=== PATIENT | male | born 1990 | race Caucasian/White ===

== ENCOUNTER 2016-12-04 11:40 | Inpatient (IN) | payer MEDICAID, OTHER ==
[~2016-12-04] VITALS: Ht 177.8 cm; Wt 98.7 kg
[2016-12-04] MEDS ORDERED: SOD CHLORIDE 0.9% 1,000 ML IV STA (12:27)
[2016-12-04 13:03] LABS: ADD SCAN DIFF NO
[2016-12-04 13:04] LABS: BASOPHILS % 0.2 % (0.0-2.0); EOSINOPHILS # 0.1 10^3/ul (0.0-0.5); EOSINOPHILS % 0.5 % (0.0-7.0); HEMATOCRIT 43.5 % (42.0-52.0); HEMOGLOBIN 14.8 g/dl (14.0-18.0); LYMPHOCYTES # 2.4 10^3/ul (0.8-2.9); LYMPHOCYTES % 18.6 % (15.0-51.0); MEAN CORPUSCULAR HEMOGLOBIN 29.2 pg (29.0-33.0); MEAN CORPUSCULAR VOLUME 85.8 fl (82.0-101.0); MEAN PLATELET VOLUME 10.7 fl (7.4-10.4); MONOCYTE # 0.7 10^3/ul (0.3-0.9); MONOCYTES % 5.4 % (0.0-11.0); NEUTROPHIL # 9.6 10^3/ul (1.6-7.5); NEUTROPHILS % 74.9 % (39.0-77.0); PLATELET COUNT 261 10^3/UL (140-415); RED BLOOD COUNT 5.07 10^6/ul (4.70-6.10); RED CELL DISTRIBUTION WIDTH 12.8 % (11.5-14.5); WHITE BLOOD COUNT 12.8 10^3/ul (4.8-10.8)
[2016-12-04 13:19] LABS: INR 0.93; PROTIME 12.5 Sec (12.2-14.2)
[2016-12-04 13:20] LABS: PARTIAL THROMBOPLASTIN TIME 35.9 Sec (25.0-35.0)
[2016-12-04 13:23] LABS: ANION GAP 15 (8-16); BLOOD UREA NITROGEN 9 mg/dl (7-20); CALCIUM 9.1 mg/dl (8.4-10.2); CARBON DIOXIDE 30 mmol/L (21-31); CHLORIDE 102 mmol/L (97-110); CREATINE KINASE 976 IU/L (23-200); CREATININE 0.83 mg/dl (0.61-1.24); GLUCOSE 101 mg/dl (70-220); POTASSIUM 4.4 mmol/L (3.5-5.1); SODIUM 143 mmol/L (135-144)
[2016-12-04 13:28] LABS: ACETAMINOPHEN < 10.0 ug/ml (10.0-30.0); ETHANOL < 10.0 mg/dl; SALICYLATE < 1.0 mg/dl (5.0-30.0)
[2016-12-04 13:36] LABS: TROPONIN-I < 0.012 ng/ml (0.00-0.12)
--- NOTE | 2016-12-04 13:46 | RADRPT ---
PROCEDURE: Chest x-ray CLINICAL INDICATION: Possible Stroke. Pain TECHNIQUE: One-view frontal. COMPARISON: None available FINDINGS: The cardiac silhouette is normal. No infiltrates are noted. No hilar abnormalities are identified. No pneumothorax or pleural effusions are visualized. IMPRESSION: 1. No active cardiopulmonary changes. RPTAT: HGSG .Avi Ragsdale MD, MD Date Time Electronically viewed and signed by .Avi Ragsdale MD, MD on 12/04/2016 13:46 .G/
[2016-12-04] MEDS ORDERED: ACETAMINOPHEN 325 MG TAB PO PRN ×2 (14:00→14:30)
[2016-12-04] MEDS ORDERED: ONDANSETRON 4 MG INJ IV PRN ×2 (14:00→14:30)
[2016-12-04 14:11] LABS: THYROID STIMULATING HORMONE 0.629 MIU/L (0.465-4.680)
[2016-12-04] MEDS ORDERED: LORAZEPAM 2 MG INJ IV PRN (14:30)
[2016-12-04] MEDS ORDERED: morphine 2 MG INJ IV PRN (14:30)
[2016-12-04] MEDS ORDERED: MAGNESIUM HYDROXIDE 30ML CUP PO PRN (14:30)
[2016-12-04] MEDS ORDERED: DOCUSATE SODIUM 100 MG CAP PO PRN (14:30)
[2016-12-04] MEDS ORDERED: ALBUTEROL/IPRATROPIUM (NEB) 3 ML AMP HHN PRN (14:30)
[2016-12-04] MEDS ORDERED: NACL 0.9% 3 ML SYG IV SCH (14:30)
[2016-12-04] MEDS ORDERED: NA PHOSPHATE/BIPHOS 133 ML ENEMA PR PRN (14:30)
[2016-12-04] MEDS ORDERED: NITROGLYCERIN (SL) 0.4 MG TAB SL PRN (14:30)
[2016-12-04] MEDS ORDERED: hydrALAzine 20 MG INJ IV PRN (14:30)
[2016-12-04] MEDS ORDERED: HYDROCODONE/APAP (5/325) TAB PO PRN (14:30)
--- NOTE | 2016-12-04 14:46 | ERA ---
ER Documentation Chief Complaint Date/Time DATE: 12/04/16 TIME: 14:44 Chief Complaint SUDDEN ONSET BILATERAL LEG WEAKNESS X1 DAY HPI Patient is a 26-year-old male with no medical problems who presents with weakness. He says "my muscles feel weak". He said at the upper and lower body bilaterally. It started yesterday morning. He said he woke up like this. He had to be carried into the car to get to the emergency department. He has pain with movement. He denies fevers. He has had no recent sickness. He denies incontinence. Upon review of old medical records this is the patient's first visit to the emergency department. He does not currently have a primary doctor. ROS All systems reviewed and are negative except as per history of present illness. Medications Home Meds No Active Prescriptions or Reported Meds Allergies Allergies: Coded Allergies: No Known Allergy (Unverified , 12/04/16) PMhx/Soc Medical and Surgical Hx: pt denies Medical Hx, pt denies Surgical Hx History of Surgery: No Anesthesia Reaction: No Hx Neurological Disorder: No Hx Respiratory Disorders: No Hx Cardiac Disorders: No Hx Psychiatric Problems: No Hx Miscellaneous Medical Probl: No Hx Alcohol Use: Yes Hx Substance Use: No Hx Tobacco Use: Yes Smoking Status: Current every day smoker FmHx Family History: No diabetes Physical Exam Vitals Vital Signs Date Time Temp Pulse Resp B/P Pulse Ox O2 Delivery O2 Flow Rate FiO2 12/04/16 13:43 86 18 116/80 100 Room Air 12/04/16 13:21 98 14 135/65 100 Room Air 12/04/16 12:45 Nasal Cannula 3 12/04/16 11:49 98.7 86 20 149/770 97 Physical Exam Const: No acute distress Head: Atraumatic Eyes: Normal Conjunctiva ENT: Normal External Ears, Nose and Mouth. Neck: Full range of motion..~ No meningismus. Resp: Clear to auscultation bilaterally Cardio: Regular rate and rhythm, no murmurs Abd: Soft, non tender, non distended. Normal bowel sounds Skin: No petechiae or rashes Back: No midline or flank tenderness Ext: No cyanosis, or edema Neur: Awake and alert, significant weakness of the upper and lower extremities bilaterally, he is unable to lift his legs off the bed Psych: Normal Mood and Affect Result Diagram: 12/04/16 1300 12/04/16 1300 Results 24 hrs Laboratory Tests Test 12/04/16 13:00 White Blood Count 12.810^3/ul Red Blood Count 5.0710^6/ul Hemoglobin 14.8g/dl Hematocrit 43.5% Mean Corpuscular Volume 85.8fl Mean Corpuscular Hemoglobin 29.2pg Mean Corpuscular Hemoglobin Concent 34.0g/dl Red Cell Distribution Width 12.8% Platelet Count 29868^3/UL Mean Platelet Volume 10.7fl Neutrophils % 74.9% Lymphocytes % 18.6% Monocytes % 5.4% Eosinophils % 0.5% Basophils % 0.2% Nucleated Red Blood Cells % 0.0/100WBC Neutrophils # 9.610^3/ul Lymphocytes # 2.410^3/ul Monocytes # 0.710^3/ul Eosinophils # 0.110^3/ul Basophils # 0.010^3/ul Nucleated Red Blood Cells # 0.010^3/ul Prothrombin Time 12.5Sec Prothrombin Time Ratio 1.0 INR International Normalized Ratio 0.93 Activated Partial Thromboplast Time 35.9Sec Sodium Level 143mmol/L Potassium Level 4.4mmol/L Chloride Level 102mmol/L Carbon Dioxide Level 30mmol/L Anion Gap 15 Blood Urea Nitrogen 9mg/dl Creatinine 0.83mg/dl Glucose Level 101mg/dl Hemoglobin A1c 5.6% Calcium Level 9.1mg/dl Creatine Kinase 976IU/L Troponin I < 0.012ng/ml Thyroid Stimulating Hormone (TSH) 0.629MIU/L Free Thyroxine 0.83ng/dl Salicylates Level < 1.0mg/dl Acetaminophen Level < 10.0ug/ml Ethyl Alcohol Level < 10.0mg/dl Current Medications Medications (Trade) Dose Ordered Sig/Amara Route PRN Reason Start Time Stop Time Status Last Admin Dose Admin Sodium Chloride (NS) 1,000 ml @ 1,000 mls/hr Q1H STAT IV 12/04/16 12:27 12/04/16 13:26 DC 12/04/16 13:06 Ondansetron HCl (Zofran Inj) 4 mg BRIDGE ORDER PRN IV NAUSEA AND/OR VOMITING 12/04/16 14:00 12/04/16 14:27 DC Acetaminophen (Tylenol Tab) 650 mg ER BRIDGE PRN PO MILD PAIN/FEVER 12/04/16 14:00 12/04/16 14:27 DC IV Flush (NS 3 ml) 3 ml PER PROTOCOL IV 12/04/16 14:30 Ondansetron HCl (Zofran Inj) 4 mg Q6H PRN IV NAUSEA AND/OR VOMITING 12/04/16 14:30 Acetaminophen (Tylenol Tab) 650 mg Q6H PRN PO PAIN LEVEL 1-3 OR FEVER 12/04/16 14:30 Acetaminophen/ Hydrocodone Bitart ([place] (5/325)) 1 tab Q6H PRN PO MODERATE PAIN LEVEL 4-6 12/04/16 14:30 Morphine Sulfate (morphine) 2 mg Q4H PRN IV SEVERE PAIN LEVEL 7-10 12/04/16 14:30 Docusate Sodium (Colace) 100 mg Q12H PRN PO CONSTIPATION 12/04/16 14:30 Magnesium Hydroxide (Milk Of Mag) 30 ml DAILY PRN PO CONSTIPATION 12/04/16 14:30 Sodium Biphosphate/ Sodium Phosphate (Fleet Enema) 133 ml DAILY PRN [place] CONSTIPATION 12/04/16 14:30 Pantoprazole (Protonix Tab) 40 mg DAILY@06 PO 12/05/16 06:00 Heparin Sodium (Porcine) (Heparin (5000 Units/0.5 ml)) 5,000 unit Q12 SC 12/04/16 21:00 Lorazepam 0.5 mg 0.5 mg Q6H PRN IV ANXIETY 12/04/16 14:30 Sodium Chloride (NS) 1,000 ml @ 150 mls/hr Q6H40M IV 12/04/16 14:19 Albuterol/ Ipratropium (Duoneb) 3 ml Q4H RESP THERAPY PRN HHN SHORTNESS OF BREATH 12/04/16 14:30 Hydralazine HCl (Apresoline) 10 mg Q6H PRN IV ELEVATED BLOOD PRESSURE 12/04/16 14:30 Nitroglycerin (Nitroglycerin (Sl Tab) 0.4 Mg) 1 tab Q5M PRN SL ANGINA 12/04/16 14:30 Procedures/MDM CT scan of the brain is pending at this time. MRI of the brain and spine is pending at this time. EKG read by me: Rate/Rhythm: Regular rate and rhythm at a normal rate Intervals: Normal Impression: No evidence of ischemia or arrhythmia Smoking Cessation Therapy: Pt. was lectured for greater than 3 minutes on the health risks of continued smoking and the benefits of cessation. Patient is a 26-year-old male presents with acute weakness. He was found to have acute rhabdomyolysis with an elevated CK. The patient will be given fluid hydration and will need to be admitted as he is not even able to ambulate at this time. This is most likely a postviral myositis. The patient will be admitted to the care of the panel team and I spoke with Dr. Leon for admission to a medical surgical bed. Departure Diagnosis: Primary Impression: Rhabdomyolysis Qualified Code: M62.82 - Non-traumatic rhabdomyolysis Additional Impression: Acute weakness Condition: Serious SHIRA SAAB MD Dec 04, 2016 14:46
[2016-12-04 15:17] LABS: ADD UMIC NO; UR ASCORBIC ACID NEGATIVE (NEGATIVE); UR BILIRUBIN (Dip) NEGATIVE (NEGATIVE); UR BLOOD (Dip) NEGATIVE (NEGATIVE); UR CLARITY SLIGHTLY CLOUDY (CLEAR); UR COLOR YELLOW (YELLOW); UR GLUCOSE (Dip) NEGATIVE (NEGATIVE); UR KETONES (Dip) NEGATIVE (NEGATIVE); UR LEUKOCYTE ESTERASE (Dip) NEGATIVE Leu/ul (NEGATIVE); UR MUCUS FEW /HPF (NONE SEEN); UR NITRITE (Dip) NEGATIVE (NEGATIVE); UR RBC 1 /HPF (0-5); UR SPECIFIC GRAVITY (Dip) 1.018 (1.003-1.030); UR TOTAL PROTEIN (Dip) NEGATIVE (NEGATIVE); UR UROBILINOGEN (Dip) NEGATIVE (NEGATIVE)
[2016-12-04 16:12] LABS: CANNABINOIDS Positive (NEGATIVE)
[2016-12-04 16:17] LABS: BARBITURATES Negative (NEGATIVE); BENZODIAZEPINES Negative (NEGATIVE); COCAINE Negative (NEGATIVE); OPIATES Negative (NEGATIVE)
--- NOTE | 2016-12-04 17:41 | RADRPT ---
PROCEDURE: MR Thoracic Spine contrast. CLINICAL INDICATION: Weakness. TECHNIQUE: Multiplanar multisequence MRI of the thoracic spine performed was performed before and following the intravenous administration of 10 cc of Magnevist. COMPARISON: There are no similar studies submitted for comparison. FINDINGS: There is preservation of the normal thoracic kyphosis. The vertebral body heights are maintained. There is normal alignment. There is no destructive osseous lesion.There is no abnormal bone marrow edema. The discs are normal in height and signal. The spinal cord is normal is signal. There is mild focal dilatation of the central canal of the spin al cord at the mid T1 to the mid T2 level as well as at the T4-T5 level measuring 1 mm (image 16 ser ies 7). There is no abnormal spinal cord enhancement. There is no significant disk herniation, spinal canal, or bilateral foraminal stenosis. The paraspinal musculature are within normal limits. IMPRESSION: 1. Mild focal dilatation of the central canal of the spinal cord at the mid T1 to the mid T2 level a s well as at the T4-T5 level measuring 1 mm. Early syringohydromyelia is not entirely excluded. Shor t-term follow-up imaging may be performed as clinically warranted. 2. No acute compression fracture or abnormal bone marrow edema. 3. No significant disk herniation, spinal canal, or bilateral foraminal stenosis. 4. No abnormal spinal cord enhancement. Further findings as detailed above. RPTAT: HVF .Kamari Williamson MD, Date Time Electronically viewed and signed by .Kamari Williamson MD, on 12/04/2016 17:41 .F/
[2016-12-04 17:50] VITALS: TEMP 98.5
[2016-12-04 18:14] VITALS: Ht 177.8 cm; Wt 98.7 kg
[2016-12-04 18:25] VITALS: BP 138/63; PULSE 86; RESP 18
[2016-12-04] MEDS: SOD CHLORIDE 0.9% 1,000 ML IV SCH ×2 (18:42→20:31)
--- NOTE | 2016-12-04 19:04 | HP ---
Date/Time of Note Date/Time of Note DATE: 12/04/16 TIME: 18:57 Assessment/Plan VTE Prophylaxis VTE Prophylaxis Intervention: heparin Lines/Catheters IV [facility] Peripheral IV Assessment/Plan Chief Complaint/Hosp Course Assessment and plan: 26-year-old male with muscle pain and weakness symptoms 1- 2 days, with signs of rhabdomyolysis 1. Muscle weakness: Suspect secondary to rhabdomyolysis, CK levels are elevated 900 range -Aggressive IV fluid hydration with normal saline at 150 cc an hour, check TSH A1c lipid panel, monitor CK levels in the morning. If does not improve, or BUN/creatinine levels increase, consider renal consult at that time. 2. GI prophylaxis: PPI 3. DVT prophylaxis: Heparin subQ Problems: HPI/ROS Admit Date/Time Admit Date/Time Dec 04, 2016 at 13:56 Hx of Present Illness 26-year-old male with no significant past medical history who has been having complaints of muscle aches. Began for the last 1-2 days, says he has been feeling more weakness in his legs and his arms but feels weakness in both areas , he had this before but never this severe, denied any upper or lower GI bleeding no recent supplements no recent workout although interestingly he did say he had a strenuous hike about a week ago. Denied any diarrhea or constipation no fevers or chills no nausea vomiting no headaches or dizziness. When he came in to the ER today his CK levels were found to be over 900 signs of rhabdomyolysis and was given IV fluid bolus. PMH/Family/Social Past Medical History Medical History: no pertinent history Past Surgical History Past Surgical Hx: no surgical history Family History Significant Family History: no pertinent family hx Social History Alcohol Use: occasionally Smoking Status: Current some day smoker Drug Use: none Exam/Review of Systems Vital Signs Vitals Vital Signs Date Time Temp Pulse Resp B/P Pulse Ox O2 Delivery O2 Flow Rate FiO2 12/04/16 18:25 98.7 86 18 138/63 99 Room Air 12/04/16 12:45 3 Exam Exam General: Alert and oriented 3, in mild distress, but conversive HEENT: Pupils equal round reactive to light extraocular muscles intact Neck: Supple Lungs: Clear to auscultation bilaterally Cardiovascular: S1-S2 heard, regular rate rhythm, no rubs or gallops GI: Nontender nondistended normal bowel sounds no rebound or guarding Musculoskeletal: Some tenderness to palpation bilateral lower extremities and bilateral upper extremities, no lower extremity bilaterally Neurologic: No focal deficits Labs Result Diagram: 12/04/16 1300 12/04/16 1300 Medications Medications Current Medications Ondansetron HCl (Zofran Inj) 4 mg Q6H PRN IV NAUSEA AND/OR VOMITING; Start 12/04 at 14:30 Acetaminophen (Tylenol Tab) 650 mg Q6H PRN PO PAIN LEVEL 1-3 OR FEVER; Start at 14:30 Acetaminophen/ Hydrocodone Bitart ([place] (5/325)) 1 tab Q6H PRN PO MODERATE PAIN LEVEL 4-6; Start 12/04/16 at 14:30 Morphine Sulfate (morphine) 2 mg Q4H PRN IV SEVERE PAIN LEVEL 7-10; Start at 14:30 Docusate Sodium (Colace) 100 mg Q12H PRN PO CONSTIPATION; Start 12/04/16 at 14: 30 Magnesium Hydroxide (Milk Of Mag) 30 ml DAILY PRN PO CONSTIPATION; Start at 14:30 Sodium Biphosphate/ Sodium Phosphate (Fleet Enema) 133 ml DAILY PRN [place] CONSTIPATION; Start 12/04/16 at 14:30 Pantoprazole (Protonix Tab) 40 mg DAILY@06 PO ; Start 12/05/16 at 06:00 Heparin Sodium (Porcine) (Heparin (5000 Units/0.5 ml)) 5,000 unit Q12 SC ; Start 12/04/16 at 21:00 Lorazepam 0.5 mg 0.5 mg Q6H PRN IV ANXIETY; Start 12/04/16 at 14:30 Sodium Chloride (NS) 1,000 ml @ 150 mls/hr Q6H40M IV Last administered on t 18:42; Admin Dose 150 MLS/HR; Start 12/04/16 at 14:19 Hydralazine HCl (Apresoline) 10 mg Q6H PRN IV ELEVATED BLOOD PRESSURE; Start at 14:30 Nitroglycerin (Nitroglycerin (Sl Tab) 0.4 Mg) 1 tab Q5M PRN SL ANGINA; Start at 14:30 MARI FERGUSON Dec 04, 2016 19:04
[2016-12-04 20:07] VITALS: BP 128/58; RESP 18
[2016-12-04] MEDS: HEPARIN 5,000 UNIT/0.5 ML VIAL SC SCH (20:30)
--- NOTE | 2016-12-04 21:56 | RADRPT ---
AMENDMENT: 12/04/2016 5:46:49 PM Tali Oh M.D PROCEDURE: MRI OF THE LUMBAR SPINE WITHOUT AND WITH GADOLINIUM. CLINICAL INDICATION: Body weakness TECHNIQUE: Multiple MRI images utilizing multiple pulse sequences in sagittal and axial planes were obtained before and after the intravenous administration of 10 cc of Magnevist gadolinium. Images we re interpreted on high-resolution PACS system. COMPARISON: None available FINDINGS: Vertebral body heights are preserved. There are no acute fractures. Bone marrow signal is within n ormal limits. Alignment is maintained. The conus terminates at T12-L1. There is no evidence of arachnoiditis. The paraspinal musculature is unremarkable. There is mild edema within the posterior paraspinal subcutaneous soft tissues. There is congenital narrowing of the central canal within the lumbar spine from L2 to the sacrum. No areas of abnormal enhancement are visualized within the conus, nerve roots, or leptomeninges. Findings at specific disc levels: T12-L1: Normal disk height and signal. No annular bulge, central canal narrowing, or neural foramina l narrowing. L1-L2: Normal disk height and signal. No annular bulge, central canal narrowing, or neural foraminal narrowing. L2-L3: Normal disk height and signal. No annular bulge. Mild central canal narrowing. No neural f oraminal narrowing. L3-L4: Normal disk height and signal. No annular bulge. Mild central canal narrowing. No neural f oraminal narrowing. L4-L5: Minimal loss of disk height and desiccation. Broad 5 mm central to right posterolateral disk protrusion compressing the ventral thecal sac with severe central canal narrowing with the canal di ameter measuring about 5-6 mm AP. There is also narrowing of the right greater than left lateral re cesses. Mild bilateral neural foraminal narrowing. L5-S1: Normal disk height and signal. Minimal annular bulge with minimal central canal narrowing. Mild right and minimal left neural foraminal narrowing. RPTAT: QQ IMPRESSION: 1. 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 2. Severe central canal narrowing at L4-L5 with a broad 5 mm central to right posterolateral disk p rotrusion and narrowing of the right greater than left lateral recesses. Mild degenerative disk dis ease at L4-L5. 3. Mild central canal narrowing at L2-L3 and L3-L4 without a significant annular bulge or disk tyson iation. .Tali Oh MD, MD Date Time Electronically viewed and signed by .Tali Oh MD, MD on 12/04/2016 17:47 .T/
[2016-12-05] MEDS: SOD CHLORIDE 0.9% 1,000 ML IV SCH ×3 (01:10→15:24)
[2016-12-05 05:36] LABS: CHOL/HDL RATIO 5.4 RATIO
[2016-12-05] MEDS ORDERED: PANTOPRAZOLE (EC) 40 MG TAB PO SCH (06:00)
[2016-12-05 06:07] LABS: THYROID STIMULATING HORMONE 1.83 MIU/L (0.465-4.680)
[2016-12-05 06:15] LABS: ADD SCAN DIFF NO
[2016-12-05 06:18] LABS: BASOPHILS % 0.3 % (0.0-2.0); EOSINOPHILS # 0.1 10^3/ul (0.0-0.5); EOSINOPHILS % 1.1 % (0.0-7.0); HEMATOCRIT 40.2 % (42.0-52.0); HEMOGLOBIN 13.5 g/dl (14.0-18.0); LYMPHOCYTES # 3.4 10^3/ul (0.8-2.9); MEAN CORPUSCULAR HEMOGLOBIN 29.1 pg (29.0-33.0); MEAN CORPUSCULAR HGB CONC 33.6 g/dl (32.0-37.0); MEAN CORPUSCULAR VOLUME 86.6 fl (82.0-101.0); MEAN PLATELET VOLUME 10.8 fl (7.4-10.4); MONOCYTE # 0.7 10^3/ul (0.3-0.9); MONOCYTES % 6.5 % (0.0-11.0); NEUTROPHIL # 6.7 10^3/ul (1.6-7.5); NEUTROPHILS % 60.6 % (39.0-77.0); PLATELET COUNT 256 10^3/UL (140-415); RED BLOOD COUNT 4.64 10^6/ul (4.70-6.10); RED CELL DISTRIBUTION WIDTH 12.8 % (11.5-14.5)
[2016-12-05 07:05] LABS: CALCIUM 9.4 mg/dl (8.4-10.2); CREATININE 0.85 mg/dl (0.61-1.24); MAGNESIUM 1.8 mg/dl (1.7-2.5); PHOSPHORUS 4.3 mg/dl (2.5-4.9); POTASSIUM 4.8 mmol/L (3.5-5.1)
--- NOTE | 2016-12-05 07:30 | RADRPT ---
PROCEDURE: MR Brain with and without contrast. CLINICAL INDICATION: Weakness. TECHNIQUE: Multiplanar multisequence MRI of the brain was performed before and after the administrat ion of 10 cc of Magnevist. COMPARISON: There are no similar studies submitted for comparison. FINDINGS: The ventricles and sulci are within normal limits. There is no abnormal intracranial enhancement. There is no acute infarction. There is no intracranial hemorrhage or extra-axial fluid collection. There is no mass effect. There is no midline shift. The brainstem is within normal limits. The posterior fossa is unremarkable. The normal intracranial, intravascular flow voids are preserved. There are small right greater than left maxillary sinus mucous retention cyst/polyps. The orbits are grossly unremarkable. There is no destructive osseous lesion. IMPRESSION: 1. No acute infarction or intracranial hemorrhage. 2. No abnormal intracranial enhancement. Further findings as detailed above. RPTAT: HVF .Kamari Williamson MD, MD Date Time Electronically viewed and signed by .Kamari Williamson MD, MD on 12/04/2016 17:40 .F/
--- NOTE | 2016-12-05 07:30 | RADRPT ---
PROCEDURE: MR Cervical Spine contrast. CLINICAL INDICATION: Weakness. TECHNIQUE: Multiplanar multisequence MRI of the cervical spine was performed before and following t he intravenous administration of 10 cc of Magnevist. COMPARISON: There are no similar studies submitted for comparison. FINDINGS: There is normal cervical lordosis The vertebral body heights are maintained. There is normal alignment. There is no destructive osseous lesion.There is no abnormal bone marrow edema. There is disk desiccation from C2-C3 to C6-C7. The spinal cord is normal in caliber. There is mild dilatation of the central canal of the spinal co rd measuring up to 1 mm in width extending from the mid C5 level to the mid C7 level most pronounced at mid C6 level. There is no abnormal spinal cord enhancement. C2-C3 : There is a 1 mm circumferential disk osteophyte complex without spinal canal stenosis. Ther e is bilateral uncovertebral hypertrophy without bilateral foraminal stenosis. C3-C4 : There is a 1 mm circumferential disk osteophyte complex without spinal canal stenosis. Ther e is bilateral uncovertebral hypertrophy without bilateral foraminal stenosis. C4-C5 : There is a 1 mm circumferential disk osteophyte complex with mild right facet arthropathy wi thout spinal canal stenosis. There is bilateral uncovertebral hypertrophy without bilateral foramin al stenosis. C5-C6 : There is a 1 mm broad-based disk osteophyte complex with dorsal annular fissure as well as d orsal ligamentous hypertrophy causing mild spinal canal stenosis. There is mild bilateral facet art hropathy without bilateral foraminal stenosis. C6-C7 : There is a 1 mm broad-based disk osteophyte complex without spinal canal stenosis. There is bilateral uncovertebral hypertrophy without bilateral foraminal stenosis. C7-T1 : There is no disc herniation, spinal canal, or foraminal stenosis. There is mild bilateral fa cet arthropathy. The paravertebral musculature are within normal limits. There is probable dural ectasia at the infer ior posterior fossa (image 6 series 3). There is no Chiari 1 malformation. IMPRESSION: 1. Mild dilatation of the central canal of the spinal cord measuring up to 1 mm in width extending f rom the mid C5 level to the mid C7 level most pronounced at mid C6 as detailed above. Early syringoh ydromyelia is not entirely excluded. Short-term follow-up imaging may be performed as clinically war ranted. 2. No abnormal bone marrow edema. 3. Multilevel minimal disk osteophyte complex with mild spinal canal stenosis at C5-C6. 4. No abnormal spinal cord enhancement. Further findings as detailed above. RPTAT: HVF .Kamari Williamson MD, MD Date Time Electronically viewed and signed by .Kamari Williamson MD, on 12/04/2016 17:40 .F/
[2016-12-05 08:14] VITALS: BP 109/55; RESP 18
[2016-12-05] MEDS: HEPARIN 5,000 UNIT/0.5 ML VIAL SC SCH (09:13)
--- NOTE | 2016-12-05 14:38 | PDOCDIS ---
Discharge Instructions CONDITION Patient Condition: Stable HOME CARE INSTRUCTIONS: Special Diet: REGULAR ACTIVITY: Activity Restrictions: Slowly Increase Activity FOLLOW UP/APPOINTMENTS Follow-up Plan Please take your medicines as prescribed. If you notice any muscle pains or weakness in your extremities, please call 911, go to ER, or go to your primary care doctor. Please follow-up with your primary care doctor in the clinic in the next 1-2 weeks. Avoid strenuous exercise and make sure you are hydrating yourself very well. MARI FERGUSON. Dec 05, 2016 14:38
--- NOTE | 2016-12-05 14:43 | DS ---
Date/Time of Note Date/Time of Note DATE: 12/05/16 TIME: 14:41 Discharge Summary Admission/Discharge Info Admit Date/Time Dec 04, 2016 at 13:56 Discharge Date/Time Discharge Diagnosis 1. Muscle weakness: Suspect secondary to rhabdomyolysis, improved. Patient Condition: Stable Hospital Course 26-year-old male with no significant past medical history who has been having complaints of muscle aches. Began for 1-2 days prior to admission, says he has been feeling more weakness in his legs and his arms but feels weakness in both areas, he had this before but never this severe, denied any upper or lower GI bleeding no recent supplements no recent workout although interestingly he did say he had a strenuous hike about a week ago. Denied any diarrhea or constipation no fevers or chills no nausea vomiting no headaches or dizziness. When he came in to the ER his CK levels were found to be over 900 signs of rhabdomyolysis and was given IV fluid bolus. Patient was admitted to medical surgical floor, put on aggressive IV fluid rehydration. Over the course of his hospital stay his muscle weakness and pain symptoms improved dramatically, he was able to ambulate, tolerated p.o. diet. Although his CK level on the day of discharge was 1011, because he is clinically feeling better it was decided the patient could be discharged today in improved condition he was reminded to keep himself well-hydrated, and if any symptoms of weakness or pain, about in his extremities, to come quickly back to the ER or call 911 or go to his primary care doctor's office. Home Meds No Active Prescriptions or Reported Meds Primary Care Provider Care Physician No Primary Pending Labs Laboratory Tests Test 12/04/16 14:45 12/05/16 04:45 Urine Color YELLOW (YELLOW) Urine Clarity SLIGHTLY CLOUDY (CLEAR) Urine pH 6.0 (5.0-9.0) Urine Specific [place] 1.018 (1.003-1.030) Urine Ketones NEGATIVEmg/dL (NEGATIVE) Urine Nitrite NEGATIVEmg/dL (NEGATIVE) Urine Bilirubin NEGATIVEmg/dL (NEGATIVE) Urine Urobilinogen NEGATIVEmg/dL (NEGATIVE) Urine Leukocyte Esterase NEGATIVELeu/ul (NEGATIVE) Urine Microscopic RBC 1/HPF (0-5) Urine Microscopic WBC 3/HPF (0-5) Urine Mucus FEW/HPF (NONE SEEN) Urine Hemoglobin NEGATIVEmg/dL (NEGATIVE) Urine Glucose NEGATIVEmg/dL (NEGATIVE) Urine Total Protein NEGATIVEmg/dl (NEGATIVE) Urine Opiates Screen Negative (NEGATIVE) Urine Barbiturates Negative (NEGATIVE) Urine Amphetamines Screen Negative (NEGATIVE) Urine Benzodiazepines Screen Negative (NEGATIVE) Urine Cocaine Screen Negative (NEGATIVE) Urine Cannabinoids Positive (NEGATIVE) White Blood Count 11.010^3/ul (4.8-10.8) Red Blood Count 4.6410^6/ul (4.70-6.10) Hemoglobin 13.5g/dl (14.0-18.0) Hematocrit 40.2% (42.0-52.0) Mean Corpuscular Volume 86.6fl (82.0-101.0) Mean Corpuscular Hemoglobin 29.1pg (29.0-33.0) Mean Corpuscular Hemoglobin Concent 33.6g/dl (32.0-37.0) Red Cell Distribution Width 12.8% (11.5-14.5) Platelet Count 25252^3/UL (140-415) Mean Platelet Volume 10.8fl (7.4-10.4) Neutrophils % 60.6% (39.0-77.0) Lymphocytes % 31.0% (15.0-51.0) Monocytes % 6.5% (0.0-11.0) Eosinophils % 1.1% (0.0-7.0) Basophils % 0.3% (0.0-2.0) Nucleated Red Blood Cells % 0.0/100WBC (0.0-0.0) Neutrophils # 6.710^3/ul (1.6-7.5) Lymphocytes # 3.410^3/ul (0.8-2.9) Monocytes # 0.710^3/ul (0.3-0.9) Eosinophils # 0.110^3/ul (0.0-0.5) Basophils # 0.010^3/ul (0.0-0.1) Nucleated Red Blood Cells # 0.010^3/ul (0.0-0.0) Sodium Level 145mmol/L (135-144) Potassium Level 4.8mmol/L (3.5-5.1) Chloride Level 103mmol/L (97-110) Carbon Dioxide Level 26mmol/L (21-31) Anion Gap 21 (8-16) Blood Urea Nitrogen 9mg/dl (7-20) Creatinine 0.85mg/dl (0.61-1.24) Glucose Level 86mg/dl (70-220) Hemoglobin A1c 5.6% (0-5.9) Calcium Level 9.4mg/dl (8.4-10.2) Phosphorus Level 4.3mg/dl (2.5-4.9) Magnesium Level 1.8mg/dl (1.7-2.5) Creatine Kinase 1011IU/L (23-200) Triglycerides Level 206mg/dl (0-149) Cholesterol Level 148mg/dl (100-200) LDL Cholesterol, Calculated 80mg/dl HDL Cholesterol 27mg/dl (30-63) Cholesterol/HDL Ratio 5.4RATIO Thyroid Stimulating Hormone (TSH) 1.830MIU/L (0.465-4.680) MARI FERGUSON Dec 05, 2016 14:43
[2016-12-05] MEDS ORDERED: LORAZEPAM 0.5 MG TAB PO PRN (19:30)
== END 2016-12-05 19:06 | disposition home or self-care (01) | DRG 558 ==
LOC: E/R 11:40 → PP2 13:56
PROVIDERS: ADMIT Hospitalist; ATTEND Hospitalist
DX: M62.82 Rhabdomyolysis (principal); Z72.0 Tobacco use
CPT/HCPCS: 36415; 70553; 71010; 72156; 72157; 72158; 80048; 80061; 80306; 80307; 81001; 81003; 82550; 83036; 83735; 84100; 84439; 84443; 84484; 85025; 85610; 85730; 92610; 93005; J1644; J7030